=== PATIENT | female | born 1945 | race Caucasian/White ===

== ENCOUNTER 2018-04-18 15:38 | Emergency (ER) | payer OTHER ==
[~2018-04-18] VITALS: Ht 175.3 cm; Wt 50.8 kg
[2018-04-18] MEDS ORDERED: LOPRESSOR25 MG (16:07)
[2018-04-18] MEDS ORDERED: LOSARTAN POTASS50 MG (16:07)
[2018-04-18] MEDS ORDERED: DILTIAZEM 24HR180 MG (16:07)
[2018-04-18] MEDS ORDERED: HYDROCHLOROTHIA25 MG (16:07)
[2018-04-18] MEDS ORDERED: CRESTOR10 MG (16:08)
[2018-04-18] MEDS ORDERED: CO Q-10300 MG (16:08)
[2018-04-18] MEDS ORDERED: FOLGARD TABLET1 EACH (16:08)
== END 2018-04-18 21:09 | disposition home or self-care (01) ==
LOC: ER 15:38
DX: M79.645 Pain in left finger(s) (principal); S60.03 Contusion of middle finger without damage to nail; X58.XXXS Exposure to other specified factors, sequela